=== PATIENT | female | born 1995 | race African-American/Black ===

== ENCOUNTER 2022-02-25 18:42 | Emergency (ER) | payer OTHER | END 2022-02-25 21:47 | disposition home or self-care (01) | LOC: CSHERS 18:42 | DX: O99.891 Other specified diseases and conditions complicating pregnancy (principal); R10.2 Pelvic and perineal pain; Z3A.01 Less than 8 weeks gestation of pregnancy | CPT/HCPCS: 76856; 84702 ==

== ENCOUNTER 2025-04-14 19:20 | Emergency (ER) | payer OTHER, MEDICAID ==
[2025-04-14 19:50] LABS: Glucose, Urine (Dipstick) Normal (Negative); Leukocyte 500 (Negative); Protein, Urine (Dipstick) 100 mg/dl (Neg-Trace); Specific Gravity, Urine 1.020 (1.005-1.030)
[2025-04-14 19:52] LABS: Pregnancy Test - Urine (BHCG) Negative (Negative); Pregu Control Background? CLEAR/WHITE (CLR/WHITE); Pregu Control Bar Appear? YES (CONTROL BAR)
[2025-04-14 20:01] LABS: #Basophils Less than 0.03 10x3/uL (0.0-0.2); #Eosinophils 0.12 10x3/uL (0.0-0.5); #Monocytes 0.62 10x3/uL (0.0-1.1); #Neutrophils 3.82 10x3/uL (1.5-8.4); %Basophils 0.2 % (0.0-2.0); %Eosinophils 1.9 % (0.0-6.0); %Lymphocytes 27.6 % (18.0-47.0); %Monocytes 9.8 % (0.0-10.0); %Neutrophils 60.2 % (40.0-75.0); Hematocrit 22.8 % (34.9-44.5); Hemoglobin 6.8 g/dL (12.0-15.5); Mean Corpuscular Hemoglobin 19.8 pg (27.0-33.0); Mean Corpuscular Volume 66.5 fL (81.6-98.3); Platelet Count 351 10x3/uL (150-450); Red Blood Cell (RBC) Count 3.43 10x6/uL (3.90-5.03); White Blood Cell (WBC) Count 6.34 10x3/uL (3.5-10.5)
[2025-04-14 20:13] LABS: ALT (SGPT) 13 U/L (Less than 34); AST (SGOT) 34 U/L (11-34); Albumin 3.5 g/dL (3.1-4.5); Alkaline Phosphatase 50 U/L (40-110); Anion Gap 13 mmol/L (10-20); BUN (Urea Nitrogen) 8 mg/dL (7.0-18.7); Bilirubin, Total 0.7 mg/dL (0.3-1.2); Calc. Creatinine Clearance 0 mL/min (70-130); Calcium 8.8 mg/dL (7.8-10.44); Carbon Dioxide 23 mmol/L (22-29); Chloride 104 mmol/L (98-107); Globulin 3.8 g/dL (2.4-3.5); Glucose 110 mg/dL (70-105); Lipase 29 U/L (8-78); Potassium 3.7 mmol/L (3.5-5.1); Sodium 136 mmol/L (136-145)
[2025-04-14 20:16] LABS: Bacteria/HPF 2+ HPF (None Seen); CAUTI Indications for Culture Dysuria,urgency,freq; Mucous/LPF 1+ LPF (<2+); WBC/HPF Greater Than 50 HPF (0-3)
[2025-04-14 20:17] LABS: Urine Culture Reflex Yes Yes
[2025-04-14 20:33] LABS: MDiff Complete? YES; Microcytosis MODERATE=15-30 cells (100X) (0-5/hpf); Ovalocytes SLIGHT = 2-5 cells (100X) (0-1/hpf); Platelet Adequacy Comment Appears Adequate; Polychromasia SLIGHT = 2-3 cells (100X) (0-2/hpf)
[2025-04-14] MEDS ORDERED: Sulfameth/Trimethoprim DS 800-160mg TAB ONE (22:03)
[2025-04-14] MEDS ORDERED: metroNIDAZOLE 500 MG TAB ONE (22:04)
[2025-04-14] MEDS ORDERED: Fluconazole 100 MG TAB PO SCH (22:15)
[2025-04-15 21:37] LABS: Chlamydia by PCR, Vaginal Swab Not Detected (NotDetected); GC by PCR, Vaginal Swab Not Detected (NotDetected)
== END 2025-04-14 22:16 ==
LOC: CSHERS 19:20
DX: O99.891 Other specified diseases and conditions complicating pregnancy (principal); S36.892A Contusion of other intra-abdominal organs, initial encounter; O99.011 Anemia complicating pregnancy, first trimester; D64.9 Anemia, unspecified; O23.41 Unspecified infection of urinary tract in pregnancy, first trimester; N39.0 Urinary tract infection, site not specified; O98.811 Other maternal infectious and parasitic diseases complicating pregnancy, first trimester; B37.31 Acute candidiasis of vulva and vagina; Z3A.11 11 weeks gestation of pregnancy
CPT/HCPCS: 36430; 74177; 76705; 80053; 81001; 81025; 83605; 83690; 84702; 85025; 86850; 86900; 86901; 86920; 87077; 87086; 87480; 87491; 87510; 87591; 87660; 96374; 99285; J2270; P9016; 36415; 87186